=== PATIENT | male | born 1955 | race Caucasian/White ===

== ENCOUNTER 2023-05-03 07:59 | Emergency (ER) | payer OTHER ==
[2023-05-03] MEDS ORDERED: Glucagon,Human Recombinant 1 MG Vial IV ONE (08:24)
== END 2023-05-03 10:01 | disposition home or self-care (01) ==
LOC: VM.ED 07:59
DX: T17.208A Unspecified foreign body in pharynx causing other injury, initial encounter (principal); Z88.0 Allergy status to penicillin; Z91.013 Allergy to seafood
CPT/HCPCS: 96374; 99283; J1610